=== PATIENT | female | born 1975 | race Asian ===

== ENCOUNTER 2017-06-19 00:27 | Emergency (ER) | payer OTHER ==
[2017-06-19 03:59] LABS: BASOPHIL % 0.3 % (0-2); PLATELET COUNT 240 x10^3mcL (130-400); RED CELL DISTRIBUTION WIDTH 12.8 % (11.5-14.5)
[2017-06-19 05:22] VITALS: BP 118/78
== END 2017-06-19 05:22 | disposition home or self-care (01) ==
LOC: ED 00:27
PROVIDERS: Emergency Medicine
DX: N30.91 Cystitis, unspecified with hematuria (principal); Z79.899 Other long term (current) drug therapy; Z91.013 Allergy to seafood
CPT/HCPCS: 36415; J1885